=== PATIENT | male | born 1995 | race Two or more races ===

== ENCOUNTER 2020-12-11 01:54 | Emergency (ER) | payer OTHER ==
[~2020-12-11] VITALS: Ht 167.6 cm; Wt 75.0 kg
[2020-12-11 03:36] VITALS: BP 124/72
[2020-12-11] MEDS ORDERED: LIDOCAINE 1% 10 ML VIAL ONE (04:54)
[2020-12-11] MEDS ORDERED: PERTUSS(ACELL),DIPH,TET VAC/PF 0.5 ML SYRINGE IM. ONE ×2 (04:54→05:00)
[2020-12-11] MEDS ORDERED: LIDOCAINE 1% 10 ML VIAL ID ONE (05:00)
== END 2020-12-11 05:34 | disposition home or self-care (01) ==
LOC: EMS 01:55
DX: S71.111A Laceration without foreign body, right thigh, initial encounter (principal); W23.0XXA Caught, crushed, jammed, or pinched between moving objects, initial encounter; Y93.89 Activity, other specified; Y92.89 Other specified places as the place of occurrence of the external cause; Y99.8 Other external cause status
CPT/HCPCS: 12001; 90471; 90715; 99283; J3490